=== PATIENT | female | born 1955 | race Caucasian/White ===

== ENCOUNTER 2016-09-10 20:46 | Emergency (ER) | payer OTHER, BC ==
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
[2016-09-10] MEDS ORDERED: SODIUM CHLORIDE 0.9% 500 ML IV ONE (21:07)
[2016-09-10] MEDS ORDERED: ACETAMINOPHEN 325 MG TAB PO ONE (21:09)
[2016-09-10 21:36] LABS: BASO % 0.5 % (0-6); EOS % 1.2 % (0-6); GRAN % 75.9 % (47-80); HEMATOCRIT 34.2 % (35.0-47.0); HEMOGLOBIN 10.7 gm/dl (11.6-16.0); LYMPH % 10.6 % (16-45); MEAN CELL VOLUME 90.2 fl (81-97); MEAN CORPUSCULAR HEMOGLOBIN 28.2 pg (27-33); MEAN CORPUSCULAR HGB CONC 31.3 g/dl (32-36); MEAN PLATELET VOLUME 12.1 fl (7.4-10.4); MONO % 11.8 % (0-9); PLATELET COUNT 123 K/uL (130-400); RED BLOOD COUNT 3.79 M/uL (3.80-5.40); WHITE BLOOD COUNT W/O DIFF 8.7 K/uL (4.2-12.2)
[2016-09-10 21:46] LABS: LACTIC ACID 2.3 mmol/L (0.7-2.1)
[2016-09-10 21:48] LABS: INR 1.08; PROTHROMBIN TIME (PATIENT) 12.2 SECONDS (9.5-12.1)
[2016-09-10 21:50] LABS: D-DIMER 1.95 mg/L FEU (0-0.59)
[2016-09-10 21:59] LABS: BLOOD UREA NITROGEN 8 mg/dL (7-17); CREATININE 0.6 mg/dL (0.52-1.04); EST GLOMERULAR FILTRATION RATE > 60 ml/min; GLUCOSE,RANDOM 237 mg/dL (70-110)
[2016-09-10 22:00] LABS: TROPONIN I < 0.012 ng/mL (0.00-0.034)
[2016-09-10 22:22] LABS: URINE APPEARANCE CLEAR; URINE BILIRUBIN NEGATIVE (NEGATIVE); URINE BLOOD TRACE-I (NEGATIVE); URINE COLOR YELLOW; URINE KETONE NEGATIVE (NEGATIVE); URINE LEUKOCYTE ESTERASE SMALL (NEGATIVE); URINE NITRITE POSITIVE (NEGATIVE); URINE PROTEIN TRACE (NEGATIVE)
[2016-09-10 22:29] LABS: URINE BACTERIA 4+; URINE WBC 16 - 20 (0-2/hpf)
[2016-09-10] MEDS ORDERED: CEFTRIAXONE SODIUM 2 GM in 0.9 % SODIUM CHLORIDE 100ML 100 ML IVPB ONE (23:09)
[2016-09-11] MEDS ORDERED: ONDANSETRON 4 MG ODT TABLET SL ONE (00:07)
[2016-09-11 01:28] LABS: ALT/SGPT 25 U/L (9-52); AST/SGOT 41 U/L (14-36)
--- NOTE | 2016-09-12 15:44 | CT ANGIOGRAM REPORT ---
EXAM: CT ANGIOGRAM CHEST CTA w contrast HISTORY: SHORTNESS OF BREATH AND ELEVATED D-DIMER. CHILLS TODAY. TECHNIQUE: CT angiography of the chest was performed with postprocessing following the bolus administration of 100 mL of Omnipaque-350. Additional coronal and sagittal maximum intensity projection reformatted images were performed on an independent workstation under concurrent supervision. COMPARISON: None. FINDINGS: The heart is upper normal in size. Mild coronary artery calcifications are present. There is no pericardial effusion. The aorta is normal in caliber with no dissection. The pulmonary arterial tree is normal. There is abnormal wall thickening of the distal esophagus with multiple adjacent paraesophageal lymph nodes. The largest is located on the right and measures 2.1 x 2.9 cm. This abuts the pleural surface. There is a 5 mm noncalcified nodule within the right middle lobe. A 6 mm noncalcified nodule is present within the left lower lobe. Dependent atelectasis is present within both lungs. There are no acute infiltrates or effusions. There are scattered nonenlarged lymph nodes within the mediastinum and pulmonary rubina. The chest wall and axillary regions appear normal. No acute osseous abnormalities are identified. The liver appears cirrhotic. There are no focal hepatic abnormalities. There is mild splenomegaly. Multiple varices are noted along the gastrohepatic ligament. Multiple paraesophageal varices are also noted. There are multiple nonenlarged and borderline enlarged lymph nodes within the gastrohepatic ligament, celiac axis, and ken hepatis region. The largest individual lymph node is located along the gastrohepatic ligament and measures 1 x 1.8 cm. IMPRESSION: 1. NO EVIDENCE FOR PULMONARY EMBOLUS OR ACUTE CARDIOPULMONARY PROCESS. 2. ABNORMAL WALL THICKENING OF THE DISTAL ESOPHAGUS WITH ASSOCIATED PARAESOPHAGEAL LYMPH NODES, THE LARGEST OF WHICH MEASURES 2.1 X 2.9 CM. MULTIPLE NONENLARGED AND BORDERLINE ENLARGED LYMPH NODES ARE ALSO PRESENT ALONG THE GASTROHEPATIC LIGAMENT, CELIAC AXIS, AND PORTACAVAL REGIONS. EGD IS RECOMMENDED FOR FURTHER CHARACTERIZATION. 3. A 5 MM NONCALCIFIED NODULE WITHIN THE RIGHT MIDDLE LOBE AND 6 MM NONCALCIFIED NODULE WITHIN THE LEFT LOWER LOBE. 4. HEPATIC CIRRHOSIS WITH ASSOCIATED SPLENOMEGALY AND VARICES IN THE GASTROHEPATIC LIGAMENT AND PARAESOPHAGEAL REGIONS. JOB NUMBER: [id number] [facility]
== END 2016-09-11 00:41 | disposition left against medical advice (07) ==
LOC: ER 20:46
DX: N10 Acute pyelonephritis (principal); K74.69 Other cirrhosis of liver; I85.00 Esophageal varices without bleeding; R11.0 Nausea; R06.02 Shortness of breath; D73.2 Chronic congestive splenomegaly; R74.0 Nonspecific elevation of levels of transaminase and lactic acid dehydrogenase [LDH]; R79.89 Other specified abnormal findings of blood chemistry; R50.81 Fever presenting with conditions classified elsewhere; E10.9 Type 1 diabetes mellitus without complications; Z79.4 Long term (current) use of insulin
CPT/HCPCS: 99284 ×2; 96374; 83605; 84450; 84460; 85025; 85610; 84484; 80048; 81001; 84443; 85379; 83880; 71275; 94640; Q9967

== ENCOUNTER 2017-10-27 20:20 | Emergency (ER) | payer OTHER, BC ==
--- NOTE | 2017-10-27 20:25 | Emergency Department Record ---
History of Present Illness - General Chief Complaint: Chest Pain Stated Complaint: CHEST PAIN Time Seen by Provider: 10/27/17 20:25 Source: Patient - History of Present Illness Initial Comments: The patient states she has had substernal chest pain since 739 this a.m. which is nonradiating, and associated with slight SOB, and worse with over bending forward. She took a naprosyn which didn't help earlier in the day. She states it has been constant and is "sharp" in quality and worsens with a deep breath. Severity is 8/10. She has seen Dr. Lionel CAPPS in the last 5-10 years, has NOT had a heart cath or stress test since then. Risks include Diabetes on insulin, hypertension, elevated cholesterol and family history of mother MD in her 40's, and Dad with a CABG and Mi in his late 50's. - Related Data Allergies Allergy/AdvReac Type Severity Reaction Status Date / Time bacitracin Allergy RASH Unverified 09/20/17 16:09 [From Neosporin ([id number])] ciprofloxacin [From Cipro] Allergy PT UNSURE Unverified 09/20/17 16:09 OF REACTION neomycin Allergy RASH Unverified 09/20/17 16:09 [From Neosporin ([id number])] polymyxin B Allergy RASH Unverified 09/20/17 16:09 [From Neosporin ([id number])] Review of Systems Reviewed: No additional complaints except as noted below Constitutional: Reports: As per HPI. Denies: Chills, Fever, Malaise, Night sweats, Weakness, Weight change Eyes: Reports: As per HPI. Denies: Eye discharge, Eye pain, Photophobia, Vision change ENT: Reports: As per HPI. Denies: Congestion, Dental pain, Ear pain, Epistaxis , Hearing loss, Throat pain Respiratory: Reports: As per HPI. Denies: Cough, Dyspnea, Hemoptysis, Stridor, Wheezes Cardiovascular: Reports: As per HPI. Denies: Arrhythmia, Chest pain, Dyspnea on exertion, Edema, Murmurs, Orthopnea, Palpitations, Paroxysmal nocturnal dyspnea, Rheumatic Fever, Syncope Endocrine: Reports: As per HPI. Denies: Fatigue, Heat or cold intolerance, Polydipsia, Polyuria Gastrointestinal: Reports: As per HPI. Denies: Abdominal pain, Constipation, Diarrhea, Hematemesis, Hematochezia, Melena, Nausea, Vomiting Genitourinary: Reports: As per HPI. Denies: Abnormal menses, Discharge, Dyspareunia, Dysuria, Frequency, Hematuria, Incontinence, Retention, Urgency Musculoskeletal: Reports: As per HPI. Denies: Arthralgia, Back pain, Gout, Joint swelling, Myalgia, Neck pain Skin: Reports: As per HPI. Denies: Bruising, Change in color, Change in hair/ nails, Lesions, Pruritus, Rash Neurological: Reports: As per HPI. Denies: Abnormal gait, Confusion, Headache, Numbness, Paresthesias, Seizure, Tingling, Tremors, Vertigo, Weakness Psychiatric: Reports: As per HPI. Denies: Anxiety, Auditory hallucinations, Depression, Homicidal thoughts, Suicidal thoughts, Visual hallucinations Hematological/Lymphatic: Reports: As per HPI. Denies: Anemia, Blood Clots, Easy bleeding, Easy bruising, Swollen glands Past Medical History - SOCIAL HISTORY Smoking Status: Never smoker Drug Use: None - RESPIRATORY Hx Respiratory Disorders: No - CARDIOVASCULAR Hx Cardio Disorders: Yes Hx Edema: Yes Hx Hypertension: Yes - NEURO Hx Neuro Disorders: Yes Hx Neuropathy: Yes - GI Hx GI Disorders: Yes Hx Hepatitis/Jaundice: Yes (HOSKINS) Comment:: esophageal varices - Hx Genitourinary Disorders: No - ENDOCRINE Hx Endocrine Disorders: Yes Hx Diabetes: Yes Hx Thyroid Disease: Yes - PSYCH Hx Psych Problems: No Family Medical History Hx Cancer: Father Hx Diabetes: Father, Mother Hx Heart Disease: Father, Mother, Brother/Sister Physical Exam - General General Appearance: Alert, Oriented x3, Cooperative, Mild distress (warm and dry ) - Head Head exam: Normal inspection - Eye Eye exam: Normal appearance, PERRL Pupils: Normal accommodation - ENT ENT exam: Normal exam, Mucous membranes moist, Normal external ear exam, Normal orophraynx, TM's normal bilaterally Ear exam: Normal external inspection. negative: External canal tenderness Nasal Exam: Normal inspection. negative: Discharge, Sinus tenderness Mouth exam: Normal external inspection, Tongue normal Teeth exam: Normal inspection. negative: Dental caries Throat exam: Normal inspection. negative: Tonsillar erythema, Tonsillar exudate - Neck Neck exam: Normal inspection, Full ROM. negative: Tenderness - Respiratory Respiratory exam: Normal lung sounds bilaterally. negative: Respiratory distress - Cardiovascular Cardiovascular Exam: Regular rate, Normal rhythm, Normal heart sounds - GI/Abdominal GI/Abdominal exam: Soft. negative: Tenderness - Rectal Rectal exam: Deferred - exam: Deferred - Extremities Extremities exam: Normal inspection, Full ROM, Normal capillary refill. negative: Calf tenderness, Pedal edema, Tenderness - Back Back exam: Reports: Normal inspection, Full ROM. Denies: CVA tenderness (R), CVA tenderness (L), Muscle spasm, Rash noted, Tenderness - Neurological Neurological exam: Alert, Normal gait, Oriented X3, Reflexes normal - Psychiatric Psychiatric exam: Normal affect, Normal mood - Skin Skin exam: Dry, Intact, Normal color, Warm Course - Reevaluation(s) Reevaluation #1: DW Dr Barker [facility] for transfer for minimal ST elevation inferior leads 10/27/17 20:47 Reevaluation #2: After nitro X one, the symptoms decreased from 8/- to 5/10. Troponin pending. [address] Barker about normal troponin. 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 Patient is now 4/10 pain level with a 93/60 blood pressure. Saline bolus infusing. No heparin running due to esophageal varices. Patient denies vomiting blood, or bloody/black stools. 10/27/17 20:56 10/27/17 21:15 Reevaluation #3: KRYSTAL CAPPS who requests the CTA be done prior to transfer but he accepts patient for transfer after CTA results. 10/27/17 21:24 Reevaluation #4: Patient is comfortable at 2300, no further symptoms unless she begins turning sideways. 10/27/17 22:57 Medical Decision Making - Management Options MDM Management: Additional Work-up Planned (e.g. ADM/Transfer/OP Study) ( Transfer to [facility]) - Data Complexity MDM Data: Labs Ordered and/or Reviewed (troponin ,glu 383), X-Ray Ordered and/ or Reviewed (CTA no PE, no aneurysm, eophageal varices and other incidental finders per radiologist), EKG Ordered and/or Reviewed (EKG Minimal ST elevation inferior leads I, III, AVF, no prior) - Lab Data Result diagrams: 10/27/17 20:25 10/27/17 20:25 - EKG Data -: EKG Interpreted by Me (EKG subtle ST elevations inferior leads.) Disposition Disposition: Transfer Clinical Impression: Chest pain at rest Disposition: Acute Care Hospital [facility] For Transfer: chest pain, EKG changes Accepting Physician: Dr. Maurizio Dennis [facility]CI Time Discussed w/Accepting Physician: 21:03 Condition: (2) Stable Forms: Patient Portal Access Quality - Quality Measures Quality Measures: N/A - Blood Pressure Screening Does Patient Have Any of the Following: No Blood Pressure Classification: Normal BP Reading Systolic Measurement: 109 Diastolic Measurement: 64 Screening for High Blood Pressure: < Normal BP, F/U Not Required > [G8783]
[2017-10-27] MEDS ORDERED: ASPIRIN 81 MG CHEWABLE TABLET PO ONE (20:36)
[2017-10-27 20:44] LABS: HEMATOCRIT 31.2 % (35.0-47.0); HEMOGLOBIN 9.4 gm/dl (11.6-16.0); MEAN CELL VOLUME 85.2 fl (81-97); MEAN CORPUSCULAR HGB CONC 30.1 g/dl (32-36); MEAN PLATELET VOLUME 11.4 fl (7.4-10.4); PLATELET COUNT 159 K/uL (130-400); RED BLOOD COUNT 3.66 M/uL (3.80-5.40); RED CELL DISTRIBUTION WIDTH 17.9 % (11.5-14.5); WHITE BLOOD COUNT W/O DIFF 7.6 K/uL (4.2-12.2)
[2017-10-27] MEDS: NITROGLYCERIN 0.4MG SL TABLET #25 BTL SL PRN ×2 (20:49→21:05)
[2017-10-27 20:54] LABS: BLOOD UREA NITROGEN 17 mg/dL (8-23); EST GLOMERULAR FILTRATION RATE 60 mL/min
[2017-10-27 20:55] LABS: TOTAL PROTEIN 6.5 g/dL (6.6-8.7)
[2017-10-27 20:57] LABS: GLUCOSE,RANDOM 384 mg/dL (74-109)
[2017-10-27 21:00] LABS: ALB/GLOB RATIO 1.4 (1.1-1.8); ALBUMIN 3.8 g/dL (4.0-5.0); ALKALINE PHOSPHATASE 91 U/L (35-104); ALT/SGPT 16 U/L (<33); AST/SGOT 28 U/L (10.0-35.0); INR 1.1; PARTIAL THROMBOPLASTIN TIME 27.5 SECONDS (24.5-39.1); PROTHROMBIN TIME (PATIENT) 11.5 SECONDS (9.5-12.1)
[2017-10-27 21:10] LABS: THYROID STIMULATING HORMONE 0.15 uIU/mL (0.270-4.20)
[2017-10-27 21:15] LABS: MEAN CORPUSCULAR HEMOGLOBIN 25.6 pg (27-33)
--- NOTE | 2017-10-30 19:44 | RADIOLOGY REPORT ---
EXAM: CHEST 1 VIEW HISTORY: DIFFICULTY IN BREATHING. TECHNIQUE: A portable AP upright view of the chest was performed. FINDINGS: Heart size is normal. Lung mayer are clear. The osseous structures are normal. IMPRESSION: NEGATIVE CHEST EXAMINATION. JOB NUMBER: [id number] [facility]
--- NOTE | 2017-10-30 19:53 | CT ANGIOGRAM REPORT ---
EXAM: CT ANGIOGRAM CHEST CTA w contrast HISTORY: CHEST PAIN. TECHNIQUE: CTA of the chest was performed after intravenous administration of 80 mL of Omnipaque-350 contrast material. Sagittal and coronal MIP images were performed on an independent workstation. FINDINGS: There is suboptimal timing of the contrast bolus. No large mass or filling defect to suggest pulmonary embolism is appreciated. Mild cardiomegaly. No pericardial effusion. There is a small sliding-type hiatal hernia. There are gastroesophageal varicosities. There is a cirrhotic liver with lymphadenopathy in the ken hepatis and upper abdomen. There is a 4 mm pleural-based nodular density in the left lung base. IMPRESSION: 1. SUBOPTIMAL TIMING OF THE CONTRAST BOLUS. NO LARGE PULMONARY EMBOLISM APPRECIATED. 2. SMALL SLIDING-TYPE HIATAL HERNIA WITH GASTROESOPHAGEAL VARICOSITIES. THERE IS A LARGE VARICOSITY VS. SOFT TISSUE MASS IN THE RIGHT PARAESOPHAGEAL REGION. THERE IS A CIRRHOTIC LIVER PRESENT. THERE ARE VARICOSITIES AND LYMPH NODES IN THE UPPER ABDOMEN. JOB NUMBER: [id number] [facility]
== END 2017-10-28 00:03 | disposition short-term general hospital (02) ==
LOC: ER 20:20
DX: R07.89 Other chest pain (principal); R06.02 Shortness of breath; E11.9 Type 2 diabetes mellitus without complications; I10 Essential (primary) hypertension; Z79.4 Long term (current) use of insulin
CPT/HCPCS: 99285 ×2; 85730; 85610; 80053; 84443; 84484; 85379; 85027; 83880; 71045; 71275; 93005; 93010; Q9967

== ENCOUNTER 2018-01-23 00:06 | Emergency (ER) | payer OTHER, BC ==
[2018-01-23] MEDS ORDERED: HYDROCODONE/APAP 5/325MG TABLET PO ONE ×2 (00:19→00:52)
--- NOTE | 2018-01-23 00:29 | Emergency Department Record ---
History of Present Illness - General Chief complaint: Pain Stated complaint: RIB PAIN Time Seen by Provider: 01/23/18 00:19 Source: Patient, Family Mode of Arrival: Ambulatory Limitations: No limitations - History of Present Illness Initial comments: 62 yo female presents with right sided rib pain that started around 6:30pm. She was bending over a washer reaching down and felt a pop in her right mid to lower lateral ribs. The states the pain is gradually worsening. No shortness of breath. No abdominal pain. She has pain with moving and deep breathing. No swelling or bruising. No back pain. MD Complaint: Other (right rib) Onset/Timin -: Hour(s) Location: Right History of Same: No -: Yes Associated chest pain Radiation: None Severity scale (1-10): 7 Quality: Sharp Consistency: Constant Improves with: Nothing Worsens with: Palpation Associated Symptoms: Denies other symptoms - Related Data Home Medications Medication Instructions Recorded Confirmed Last Taken Mv-Min/Iron/Folic/Calcium/Vitk 1 each PO DAILY 01/23/18 01/23/18 Unknown [Women's Multivitamin Tablet] Allergies Allergy/AdvReac Type Severity Reaction Status Date / Time bacitracin Allergy RASH Verified 01/23/18 00:18 [From Neosporin ([id number])] ciprofloxacin [From Cipro] Allergy PT UNSURE Verified 01/23/18 00:18 OF REACTION neomycin Allergy RASH Verified 01/23/18 00:18 [From Neosporin ([id number])] polymyxin B Allergy RASH Verified 01/23/18 00:18 [From Neosporin ([id number])] Travel Screening - Travel/Exposure Within Last 30 Days Have you traveled within the last 30 days?: No - Travel/Exposure Within Last Year Have you traveled outside the [place] in the last year?: No - Additonal Travel Details Have you been exposed to anyone with a communicable illness?: No - Travel Symptoms Symptom Screening: None Review of Systems Constitutional: Denies: Chills, Fever Eyes: Denies: Eye discharge ENT: Denies: Congestion, Throat pain Respiratory: Denies: Cough, Dyspnea, Hemoptysis, Wheezes Cardiovascular: Reports: As per HPI, Chest pain Endocrine: Denies: Fatigue Gastrointestinal: Denies: Abdominal pain, Diarrhea, Nausea, Vomiting Genitourinary: Denies: Hematuria Musculoskeletal: Denies: Arthralgia, Back pain, Myalgia, Neck pain Skin: Denies: Bruising, Change in color, Rash Neurological: Denies: Headache Psychiatric: Denies: Anxiety Hematological/Lymphatic: Denies: Easy bleeding, Easy bruising Past Medical History - SOCIAL HISTORY Smoking Status: Never smoker Alcohol Use: None Drug Use: None - RESPIRATORY Hx Respiratory Disorders: No - CARDIOVASCULAR Hx Cardio Disorders: Yes Hx Edema: Yes Hx Hypertension: Yes - NEURO Hx Neuro Disorders: Yes Hx Neuropathy: Yes - GI Hx GI Disorders: Yes Hx Hepatitis/Jaundice: Yes ([facility]) Comment:: esophageal varices - Hx Genitourinary Disorders: No - ENDOCRINE Hx Endocrine Disorders: Yes Hx Diabetes: Yes Hx Thyroid Disease: Yes - MUSCULOSKELETAL Hx Musculoskeletal Disorders: No - PSYCH Hx Psych Problems: No - HEMATOLOGY/ONCOLOGY Hx Hematology/Oncology Disorders: No Family Medical History Any Significant Family History?: No Hx Cancer: Father Hx Diabetes: Father, Mother Hx Heart Disease: Father, Mother, Brother/Sister Physical Exam - General General Appearance: Alert, Oriented x3, Cooperative, No acute distress Limitations: No limitations - Head Head exam: Atraumatic, Normal inspection - Eye Eye exam: Normal appearance. negative: Conjunctival injection, Scleral icterus - ENT ENT exam: Normal exam Ear exam: Normal external inspection Nasal Exam: Normal inspection Mouth exam: Normal external inspection - Neck Neck exam: Normal inspection - Respiratory Respiratory exam: Normal lung sounds bilaterally, Chest wall tenderness. negative: Accessory muscle use, Decreased breath sounds, Prolonged expiratory, Rales, Respiratory distress, Rhonchi, Stridor, Wheezes - Cardiovascular Cardiovascular Exam: Regular rate, Normal rhythm, Normal heart sounds - GI/Abdominal GI/Abdominal exam: Soft. negative: Distended, Guarding, Rebound, Rigid, Tenderness - Rectal Rectal exam: Deferred - exam: Deferred - Extremities Extremities exam: Normal inspection - Back Back exam: Reports: Normal inspection. Denies: CVA tenderness (R), CVA tenderness (L), Paraspinal tenderness, Tenderness, Vertebral tenderness - Neurological Neurological exam: Alert, Oriented X3 - Psychiatric Psychiatric exam: Normal affect, Normal mood - Skin Skin exam: Dry, Intact, Normal color, Warm Course Vital Signs 01/23/18 00:12 Temperature 98.2 F Pulse Rate [ 72 Pulse Ox Probe] Respiratory 24 Rate Blood Pressure 120/68 [Left Arm] Pulse Ox 97 - Reevaluation(s) Reevaluation #1: The vitals were reviewed No acute significant changes 01/23/18 00:27 01/23/18 00:53 The [facility] XR was read as negative We discussed rib injuries and occult fractures We discussed home care and reasons for a recheck Disposition Disposition: Discharge Clinical Impression: Contusion of rib on right side Qualifiers: Encounter type: initial encounter Qualified Code(s): S20.211A - Contusion of right front wall of thorax, initial encounter Disposition: Home, Self-Care Condition: (1) Good Instructions: Rib Contusion (ED) Additional Instructions: Use the incentive spirometer as you were taught in the ER Return or be seen by your doctor if worse, cough, short of breath, fever Forms: Patient Portal Access Time of Disposition: 00:54 Quality - Quality Measures Quality Measures: N/A - Blood Pressure Screening Does Patient Have Any of the Following: No Blood Pressure Classification: Pre-Hypertensive BP Reading Systolic Measurement: 120 Diastolic Measurement: 68 Screening for High Blood Pressure: < Pre-Hypertensive BP, F/U Documented > [ [id number]] Pre-Hypertensive Follow-up Interventions: Referral to alternative/primary care provider.
--- NOTE | 2018-01-24 07:23 | RADIOLOGY REPORT ---
EXAM: CHEST AND RIGHT RIBS HISTORY: INJURY. TECHNIQUE: A single PA view of the chest and multiple views of the right rib cage were performed. FINDINGS: The heart size is normal. The lung mayer are clear. No rib fracture deformity. No pneumothorax. IMPRESSION: NEGATIVE PA CHEST AND RIGHT RIB SERIES. JOB NUMBER: [id number] MTDD
== END 2018-01-23 01:04 | disposition home or self-care (01) ==
LOC: ER 00:06
DX: S20.211A Contusion of right front wall of thorax, initial encounter (principal); I10 Essential (primary) hypertension; X50.1XXA Overexertion from prolonged static or awkward postures, initial encounter; Y93.E2 Activity, laundry
CPT/HCPCS: 94010; 99283